=== PATIENT | female | born 1950 | race Caucasian/White ===

== ENCOUNTER 2018-12-31 22:52 | Emergency (ER) | payer MEDICARE, BC ==
[~2018-12-31] VITALS: Ht 170.2 cm; Wt 86.2 kg
--- NOTE | 2018-12-31 23:29 | NUR ---
PT BIBSELF C/O DYSURIA X2 WEEKS. -HEMATURIA, +R FLANK PAIN, RECENTLY FINISHED DOXYCYCLINE AND DIFLUCAN, PT IS AAOX4, NOT IN RESPIRTORY DISTRESS, KEPT RESTED AND COMFORTABLE, WILL CONTINUE TO MONITOR.
--- NOTE | 2018-12-31 23:55 | NUR ---
SEEN AND EXAMINED BY .
[2018-12-31] MEDS ORDERED: ONDANSETRON HCL/PF 4 MG/2 ML VIAL ONE (23:57)
[2019-01-01] MEDS ORDERED: IV NS 0.9% 1,000 ML BAG IV ONE
[2019-01-01] MEDS ORDERED: ONDANSETRON HCL/PF 4 MG/2 ML VIAL IVP ONE
--- NOTE | 2019-01-01 00:05 | NUR ---
IV LINE ESTABLISHED, LABS DRAWNED AND SENT TO LAB.
[2019-01-01 00:10] LABS: APPEARANCE,URINE Slightly Cloudy (CLEAR); BASOPHILS % (AUTO) 0.3 % (0.0-2.0); BILIRUBIN,URINE SMALL (NEGATIVE); BLOOD, URINE Trace-intact Ery/uL (NEGATIVE); COLOR,URINE Other (YELLOW); EOSINOPHILS % (AUTO) 3.4 % (0.0-6.0); HEMATOCRIT 43 % (33-45); HEMOGLOBIN 14.7 g/dL (11.5-14.8); KETONES,URINE 15 (NEGATIVE); LEUKOCYTE ESTERASE ,URINE Large (NEGATIVE); LYMPHOCYTES # (AUTO) 1.7 /CMM (0.8-4.8); LYMPHOCYTES % (AUTO) 16.4 % (20.0-44.0); MEAN CORPUSCULAR HGB CONC 34 g/dl (31.0-36.0); MEAN CORPUSCULAR VOLUME 98 fL (82-100); MONOCYTES # (AUTO) 0.9 /CMM (0.1-1.30); MONOCYTES % (AUTO) 8.6 % (2.0-12.0); NEUTROPHILS # (AUTO) 7.6 /CMM (1.8-8.9); NEUTROPHILS % (AUTO) 71.3 % (43.0-81.0); NITRITE, URINE Positive (NEGATIVE); PLATELET COUNT (AUTO) 213 /CMM (150-450); PROTEIN,URINE 100 mg/dl (NEGATIVE); RED BLOOD CELL COUNT(AUTO) 4.37 MIL/uL (4.0-5.2); UGLUCOSE 250 MG/DL mg/dL (NEGATIVE); WHITE BLOOD COUNT (AUTO) 10.6 K/uL (4.3-11.0)
[2019-01-01 00:15] LABS: CALCIUM, SERUM 9.5 mg/dL (8.5-10.1); CREATININE 1.2 mg/dL (0.6-1.3); POTASSIUM 3.6 mmol/L (3.5-5.1)
[2019-01-01 00:21] LABS: ALBUMIN 4.1 g/dL (3.4-5.0); BILIRUBIN,DIRECT 0.1 mg/dL (0.0-0.2); BILIRUBIN,TOTAL 0.3 mg/dL (0.2-1.0); TOTAL PROTEIN, SERUM 7.5 g/dL (6.4-8.2)
[2019-01-01 00:50] LABS: BACTERIA,URINE Few /HPF (None Seen); CALCIUM OXALATE CRYSTALS,UR Moderate /HPF (None Seen); SQUAMOUS EPITHELIAL CELL,UR Few /HPF (None Seen)
[2019-01-01] MEDS ORDERED: CEFTRIAXONE 1GM BAG (ER ONLY) 50 ML IV ONE (01:30)
[2019-01-01] MEDS ORDERED: CEFTRIAXONE 1GM BAG (ER ONLY) 1 GM/50 ML PIGGYBACK IV ONE (01:30)
[2019-01-01 02:26] VITALS: BP 136/82
--- NOTE | 2019-01-01 02:26 | NUR ---
IV removed. Catheter intact and site benign. Pressure and 4x4 applied to site. No bleeding noted. Patient discharged to home in stable condition. Written and verbal after care instructions given. Patient verbalizes understanding of instruction.
== END 2019-01-01 02:28 | disposition home or self-care (01) ==
LOC: ER 22:56
DX: N12 Tubulo-interstitial nephritis, not specified as acute or chronic (principal); E78.5 Hyperlipidemia, unspecified; E03.9 Hypothyroidism, unspecified; E66.9 Obesity, unspecified; R42 Dizziness and giddiness; Z88.2 Allergy status to sulfonamides; Z90.710 Acquired absence of both cervix and uterus; Z90.49 Acquired absence of other specified parts of digestive tract
CPT/HCPCS: 36415; 80048; 80076; 81001; 85025; 87086; 96361; 96365; 96375; 99283; J0696; J2405; J7030; 81000-TC